=== PATIENT | female | born 1985 | race Caucasian/White ===

== ENCOUNTER 2017-07-10 21:33 | Emergency (ER) | payer SELFPAY ==
--- NOTE | 2017-07-10 22:10 | EDM.PDOC ---
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 Patient is not sure she is She does not feel that she is latein timing. She said bleeding which was slightly worse tonight so she came to the emergency department for evaluation. Patient says she had some crampy pelvic pain earlier but that is now resolved. She has no fevers chills sweats or shaking chills. Normal bowel bladder habits.No lightheadedness or near syncope. Denies chest pain or shortness of breath. she does not clinically intoxicated but she does admit to drinking several beers prior to arrival. Review of systems: As per history of present illness and below otherwise all systems reviewed and negative. Past medical history: As per history of present illness and as reviewed below otherwise noncontributory. Surgical history: As per history of present illness and as reviewed below otherwise noncontributory. Social history: No reported history of drug or alcohol abuse. Family history: As per history of present illness and as reviewed below otherwise noncontributory. Physical exam:ell-appearing 32-year-old female alert communicative cooperative and appropriate positive alcohol on breath not clinically intoxicated.lear lungs regular rhythm no tachycardia benign abdomen and pelvis CVA tenderness normal extremities normal color conjunctival pallor HEENT: Atraumatic, normocephalic, pupils reactive, negative for conjunctival pallor or scleral icterus, mucous membranes moist, throat clear, neck supple, nontender, trachea midline. Lungs: Clear to auscultation, breath sounds equal bilaterally, chest nontender. Heart: S1S2, regular, negative for clicks, rubs, or JVD. Abdomen: Soft, nondistended, nontender. Negative for masses or hepatosplenomegaly. Negative for costovertebral tenderness. Pelvis: Stable nontender. Genitourinary: Deferred. Rectal: Deferred. Extremities: Atraumatic, negative for cords or calf pain. Neurovascular unremarkable. Neuro: Awake, alert, oriented. Cranial nerves grossly unremarkable. Motor unremarkable throughout. Exam nonfocal. Diagnostics: Therapeutics: [] Impression: [] Plan: [urine hCG positive and history consistent with bleeding in early . Quantitative hCG pending to get approximate gestational age and determine whether ultrasound imaging is indicated today.Type and Rh pending to rule outRh negativity . Hemoglobin pending though patient is not clinically anemic. Vital signs stable Quantitative hCG consistent with less than 5 weeks gestation. She is Rh+. Her hemoglobins unremarkable. Patient's exam is benign including her pelvic exam which is no active bleeding and with nurse Enoc present. No further workup or treatment is indicated. Patient were to follow-up with PCP for reevaluation and repeat quantitative hCG with further imaging as needed. She is aware the possibility of an ectopic and the need for close follow-up to rule this out. Patient agrees with outpatient follow-up and strict return precautions given Definitive disposition and diagnosis as appropriate pending reevaluation and review of above. - Related Data Allergies Allergy/AdvReac Type Severity Reaction Status Date / Time No Known Allergies Allergy Verified 07/10/17 21:41 Home Meds: Home Meds . 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: Neurological History: Reports: None Endocrine/Metabolic History: Reports: None - Infectious Disease History Infectious Disease History: Reports: Chicken Pox - Past Surgical History HEENT Surgical History: Reports: None Cardiovascular Surgical History: Reports: None Endocrine Surgical History: Reports: None Social & Family History - Tobacco Use Smoking Status *Q: Current Every Day Smoker Years of Tobacco use: 20 Packs/Tins Daily: 1 ED ROS GENERAL - Review of Systems Review Of Systems: See Below (History of present illness) ED EXAM - Physical Exam Exam: See Below (history of present illness) Course - Vital Signs Last Recorded V/S: Last Vital Signs Temp 36.6 C 07/11/17 00:14 Pulse 94 07/11/17 00:14 Resp 17 07/11/17 00:14 BP 127/71 07/11/17 00:14 Pulse Ox 95 07/11/17 00:14 - Orders/Labs/Meds Labs: Laboratory Tests 07/10/17 07/10/17 07/10/17 Range/Units 21:59 22:42 22:42 Hgb 14.0 (12.0-16.0) g/dL Hct 41.8 (36.0-46.0) % HCG, Quant 196.0 mIU/mL Urine HCG, Qual POSITIVE (NEGATIVE) Blood Type Antibody Screen 07/10/17 Range/Units 22:42 Hgb (12.0-16.0) g/dL Hct (36.0-46.0) % HCG, Quant mIU/mL Urine HCG, Qual (NEGATIVE) Blood Type O POSITIVE Antibody Screen NEGATIVE Departure - Departure Time of Disposition: 00:05 Disposition: Home, Self-Care 01 Condition: Good Clinical Impression: , Threatened miscarriage in early - Discharge Information Instructions: Miscarriage, [id number] Referrals: PCP,None [Primary Care Provider] - Forms: ED Department Discharge Additional Instructions: our test was positive tonight in your hormone level was 196 which would indicate that you are less than 5 weeks gestation. he fact that you or bleedingand have been bleeding heavier than a normal period suggests that it is likely you may be having a miscarriage. ollow-up with your Dr. 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 If the value was going up in 2 days that would be suggestive of a developing and at some point and ultrasound would then be indicated. If the value was going down, that would be consistent with a miscarriage in early Be aware that your blood type is O+ which is important to remember.Your hemoglobin was normal today at 14. Rest and drink plenty of fluidsfollow-up with your doctor as directed and return immediately for uncontrolled pain, severe bleeding , fainting,or other new severe or worsening symptoms.
== END 2017-07-11 00:16 | disposition home or self-care (01) ==
LOC: MW.ED 21:33
DX: O20.0 Threatened abortion (principal); O99.331 Smoking (tobacco) complicating pregnancy, first trimester; F17.210 Nicotine dependence, cigarettes, uncomplicated; Z3A.01 Less than 8 weeks gestation of pregnancy
CPT/HCPCS: 36415; 81025; 84702; 85014; 85018; 86850; 86900; 86901; 88304; 99282; 99284

== ENCOUNTER 2017-07-28 14:52 | Emergency (ER) | payer SELFPAY ==
--- NOTE | 2017-07-28 16:24 | EDM.PDOC ---
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 Patient did not have follow -up because she indicated she misunderstood and thought that she was going to completely abort there is no need for monitoring or serial hCGs to rule out ectopic .] Review of systems: As per history of present illness and below otherwise all systems reviewed and negative. Past medical history: As per history of present illness and as reviewed below otherwise noncontributory. Surgical history: As per history of present illness and as reviewed below otherwise noncontributory. Social history: No reported history of drug or alcohol abuse. Family history: As per history of present illness and as reviewed below otherwise noncontributory. Physical exam: HEENT: Atraumatic, normocephalic, pupils reactive, negative for conjunctival pallor or scleral icterus, mucous membranes moist, throat clear, neck supple, nontender, trachea midline. Lungs: Clear to auscultation, breath sounds equal bilaterally, chest nontender. Heart: S1S2, regular, negative for clicks, rubs, or JVD. Abdomen: Soft, nondistended, nontender. Negative for masses or hepatosplenomegaly. Negative for costovertebral tenderness. Pelvis: Stable nontender. Genitourinary: Pelvic exam performed with the cervix appearing dilated and a blood clot versus progressive conception appeared at the external os Rectal: Deferred. Extremities: Atraumatic, negative for cords or calf pain. Neurovascular unremarkable. Neuro: Awake, alert, oriented. Cranial nerves II through XII unremarkable. Cerebellum unremarkable. Motor and sensory unremarkable throughout. Exam nonfocal. On the pelvic exam long ring forceps used to obtain a small sample of the mass at the external os due to increased discomfort for patient only a small sample was obtained. Dr. 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 Houser in the morning, amoxicillin] Definitive disposition and diagnosis as appropriate pending reevaluation and review of above. Lower Abdomen Pain Score (Numeric/FACES): 8 - Related Data Allergies Allergy/AdvReac Type Severity Reaction Status Date / Time No Known Allergies Allergy Verified 07/28/17 14:56 Home Meds: Home Meds . 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: Neurological History: Reports: None Endocrine/Metabolic History: Reports: None Hematologic History: Reports: None Immunologic History: Reports: None Oncologic (Cancer) History: Reports: None - Infectious Disease History Infectious Disease History: Reports: Chicken Pox - Past Surgical History Head Surgeries/Procedures: Reports: None HEENT Surgical History: Reports: None Cardiovascular Surgical History: Reports: None Endocrine Surgical History: Reports: None Oncologic Surgical History: Reports: None Social & Family History - Family History Family Medical History: Noncontributory - Tobacco Use Smoking Status *Q: Current Every Day Smoker Years of Tobacco use: 29 Packs/Tins Daily: 1 - Caffeine Use Caffeine Use: Reports: Coffee - Recreational Drug Use Recreational Drug Use: No ED ROS GENERAL - Review of Systems Review Of Systems: See Below (See history of present illness) ED EXAM, GENERAL - Physical Exam Exam: See Below (History of present illness) Course - Vital Signs Last Recorded V/S: Last Vital Signs Temp 36.3 C 07/28/17 14:57 Pulse 75 07/28/17 14:57 Resp 18 07/28/17 14:57 BP 116/75 07/28/17 14:57 Pulse Ox 97 07/28/17 14:57 - Orders/Labs/Meds Orders: Active Orders 24 hr Category Date Time Status OB 1st Tri Sgl 1st Gest [US] Stat Exams 07/28/17 15:02 Taken Labs: Laboratory Tests 07/28/17 07/28/17 07/28/17 Range/Units 15:08 15:08 15:15 WBC 13.38 H (4.0-11.0) K/uL RBC 4.51 (4.30-5.90) M/uL Hgb 14.7 (12.0-16.0) g/dL Hct 44.0 (36.0-46.0) % MCV 97.6 (80.0-98.0) fL MCH 32.6 H (27.0-32.0) pg MCHC 33.4 (31.0-37.0) g/dL RDW Std Deviation 46.2 (28.0-62.0) fl RDW Coeff of Chantal 13 (11.0-15.0) % Plt Count 292 (150-400) K/uL MPV 9.40 (7.40-12.00) fL Neut % (Auto) 75.5 (48.0-80.0) % Lymph % (Auto) 15.5 L (16.0-40.0) % [place] % (Auto) 6.8 (0.0-15.0) % Eos % (Auto) 1.9 (0.0-7.0) % Baso % (Auto) 0.3 (0.0-1.5) % Neut # (Auto) 10.1 H (1.4-5.7) K/uL Lymph # (Auto) 2.1 (0.6-2.4) K/uL Garfield # (Auto) 0.9 H (0.0-0.8) K/uL Eos # (Auto) 0.3 (0.0-0.7) K/uL Baso # (Auto) 0.0 (0.0-0.1) K/uL Nucleated RBC % 0.0 /100WBC Nucleated RBCs # 0 K/uL HCG, Quant 2.8 mIU/mL Urine Color YELLOW Urine Appearance CLEAR Urine pH 6.0 (5.0-8.0) Ur Specific [place] 1.025 (1.001-1.035) Urine Protein NEGATIVE (NEGATIVE) mg/dL Urine Glucose (UA) NEGATIVE (NEGATIVE) mg/dL Urine Ketones NEGATIVE (NEGATIVE) mg/dL Urine Occult Blood LARGE H (NEGATIVE) Urine Nitrite NEGATIVE (NEGATIVE) Urine Bilirubin NEGATIVE (NEGATIVE) Urine Urobilinogen 0.2 (<2.0) EU/dL Ur Leukocyte Esterase SMALL (NEGATIVE) Urine RBC 8-12 (0-2/HPF) Urine WBC 1-3 (0-5/HPF) Ur Epithelial Cells RARE (NONE-FEW) Urine Bacteria FEW (NEGATIVE) Urine Opiates Screen (NEGATIVE) Ur Oxycodone Screen (NEGATIVE) Urine Methadone Screen (NEGATIVE) Ur Barbiturates Screen (NEGATIVE) Ur Phencyclidine Scrn (NEGATIVE) Ur Amphetamine Screen (NEGATIVE) U Methamphetamines Scrn (NEGATIVE) U Benzodiazepines Scrn (NEGATIVE) U Cocaine Metab Screen (NEGATIVE) U Marijuana (THC) Screen (NEGATIVE) 07/28/17 Range/Units 15:15 WBC (4.0-11.0) K/uL RBC (4.30-5.90) M/uL Hgb (12.0-16.0) g/dL Hct (36.0-46.0) % MCV (80.0-98.0) fL MCH (27.0-32.0) pg MCHC (31.0-37.0) g/dL RDW Std Deviation (28.0-62.0) fl RDW Coeff of Chantal (11.0-15.0) % Plt Count (150-400) K/uL MPV (7.40-12.00) fL Neut % (Auto) (48.0-80.0) % Lymph % (Auto) (16.0-40.0) % [place] % (Auto) (0.0-15.0) % Eos % (Auto) (0.0-7.0) % Baso % (Auto) (0.0-1.5) % Neut # (Auto) (1.4-5.7) K/uL Lymph # (Auto) (0.6-2.4) K/uL [place] # (Auto) (0.0-0.8) K/uL Eos # (Auto) (0.0-0.7) K/uL Baso # (Auto) (0.0-0.1) K/uL Nucleated RBC % /100WBC Nucleated RBCs # K/uL HCG, Quant mIU/mL Urine Color Urine Appearance Urine pH (5.0-8.0) Ur Specific [place] (1.001-1.035) Urine Protein (NEGATIVE) mg/dL Urine Glucose (UA) (NEGATIVE) mg/dL Urine Ketones (NEGATIVE) mg/dL Urine Occult Blood (NEGATIVE) Urine Nitrite (NEGATIVE) Urine Bilirubin (NEGATIVE) Urine Urobilinogen (<2.0) EU/dL Ur Leukocyte Esterase (NEGATIVE) Urine RBC (0-2/HPF) Urine WBC (0-5/HPF) Ur Epithelial Cells (NONE-FEW) Urine Bacteria (NEGATIVE) Urine Opiates Screen NEGATIVE (NEGATIVE) Ur Oxycodone Screen NEGATIVE (NEGATIVE) Urine Methadone Screen NEGATIVE (NEGATIVE) Ur Barbiturates Screen NEGATIVE (NEGATIVE) Ur Phencyclidine Scrn NEGATIVE (NEGATIVE) Ur Amphetamine Screen NEGATIVE (NEGATIVE) U Methamphetamines Scrn NEGATIVE (NEGATIVE) U Benzodiazepines Scrn NEGATIVE (NEGATIVE) U Cocaine Metab Screen NEGATIVE (NEGATIVE) U Marijuana (THC) Screen NEGATIVE (NEGATIVE) Departure - Departure Time of Disposition: 17:24 Disposition: Home, Self-Care 01 Condition: Good Clinical Impression: Incomplete - Discharge Information Referrals: PCP,None [Primary Care Provider] - Forms: ED Department Discharge Additional Instructions: The following information is given to patients seen in the emergency department who are being discharged to home. This information is to outline your options for follow-up care. We provide all patients seen in our emergency department with a follow-up referral. The need for follow-up, as well as the timing and circumstances, are variable depending upon the specifics of your emergency department visit. If you don't have a primary care physician on staff, we will provide you with a referral. We always advise you to contact your personal physician following an emergency department visit to inform them of the circumstance of the visit and for follow-up with them and/or the need for any referrals to a consulting specialist. The emergency department will also refer you to a specialist when appropriate. This referral assures that you have the opportunity for follow-up care with a specialist. All of these measure are taken in an effort to provide you with optimal care, which includes your follow-up. Under all circumstances we always encourage you to contact your private physician who remains a resource for coordinating your care. When calling for follow-up care, please make the office aware that this follow-up is from your recent emergency room visit. If for any reason you are refused follow-up, please contact the [facility] Emergency Department at and asked to speak to the emergency department charge nurse. It is imperative you follow-up with Dr. Douglas in the morning call his office at 8:00 [facility] - [facility] [address] [place] [address] - My Orders Last 24 Hours: My Active Orders 07/28/17 15:02 OB 1st Tri Sgl 1st Gest [US] Stat - Assessment/Plan Last 24 Hours: My Active Orders 07/28/17 15:02 OB 1st Tri Sgl 1st Gest [US] Stat
[2017-07-28] MEDS ORDERED: oxyCODONE 5 MG Tab PO ONE (17:20)
[2017-07-28] MEDS ORDERED: Acetaminophen/oxyCODONE 325-5 MG Tab PO ONE (17:28)
--- NOTE | 2017-07-29 15:26 | US ---
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 Site : 1985 Study: US OB Pelvis [id number]/29/2017 4:32:28 PM Ordering Physician: Doctor Joya Final Report: INDICATION: PREG UT W/ PAIN INDICATION: Early , beta HCG level 2.8. FINDINGS: No intrauterine is identified. Endometrial stripe thickness is borderline prominent at 15 mm. The bilateral ovaries are normal size. There is color Doppler blood flow to both ovaries. Developing follicles noted. No significant free fluid noted. There is increased heterogeneous density demonstrated within the cervical canal. IMPRESSION: 1. No intrauterine is identified. There is heterogeneous density within the cervical canal. This is nonspecific including both retained products of , blood products, or a mass. This should be followed as clinically needed. 2. The bilateral ovaries demonstrate color Doppler blood flow. No suspicious masses seen. No significant free fluid is seen. 3. Given the low level of the beta HCG level recommend serial beta HCG levels and followup ultrasound as clinically indicated. Dictated by Joe Cherry MD @ 07/28/2017 4:43:46 PM Dictated by: Joe Cherry MD @ 07/28/2017 16:43:54 (Electronic Signature) Report Signed by Proxy. VINNY
== END 2017-07-28 17:53 | disposition home or self-care (01) ==
LOC: MW.ED 14:52
DX: O03.4 Incomplete spontaneous abortion without complication (principal); N88.8 Other specified noninflammatory disorders of cervix uteri; F17.210 Nicotine dependence, cigarettes, uncomplicated
CPT/HCPCS: 36415; 76801; 76801-26; 80305; 81001; 84702; 85025; 87070; 87491; 87591; 88305; 99283; 99284-25